=== PATIENT | female | born 1990 | race Two or more races ===

== ENCOUNTER 2021-07-19 18:08 | Emergency (ER) | payer SELFPAY ==
[~2021-07-19] VITALS: Ht 162.6 cm; Wt 77.7 kg
[2021-07-19 18:56] LABS: BASO # 0.1 x10^3/uL (0.0-0.2); BASO % 1 % (0-3); EOS % 0 % (0-3); HEMATOCRIT 42.3 % (36.0-47.0); HEMOGLOBIN 14.2 g/dL (12.0-15.5); LYMPH # 4.2 x10^3/uL (1.0-4.8); LYMPH % 22 % (24-48); MEAN CORPUSCULAR HEMOGLOBIN 31 pg (25-35); MEAN CORPUSCULAR HGB CONC 34 g/dL (31-37); MEAN CORPUSCULAR VOLUME 92 fL (79-100); MONO # 1.3 x10^3/uL (0.0-1.1); MONO % 7 % (0-9); NEUT # 14.1 x10^3/uL (1.8-7.7); NEUT % 71 % (31-73); PLATELET COUNT 294 x10^3/uL (140-400); RED BLOOD COUNT 4.58 x10^6/uL (3.50-5.40); WHITE BLOOD COUNT 19.8 x10^3/uL (4.0-11.0)
[2021-07-19 18:58] LABS: BILIRUBIN,URINE NEGATIVE (NEG); CLARITY,URINE CLEAR; COLOR,URINE YELLOW; NITRITE,URINE NEGATIVE (NEG); PROTEIN,URINE NEGATIVE (NEG-TRACE); UROBILINOGEN,URINE 0.2 mg/dL (0.2 mg/dL)
[2021-07-19 19:15] LABS: CALCIUM 8.9 mg/dL (8.5-10.1); CREATININE 0.8 mg/dL (0.6-1.0); GFR 83.1; POTASSIUM 3.5 mmol/L (3.5-5.1)
[2021-07-19 19:16] LABS: AMPHETAMINE/METHAMPHETAMINE NEG (NEG); BARBITURATES NEG (NEG); BENZODIAZEPINES NEG (NEG); CANNABINOIDS NEG (NEG); COCAINE NEG (NEG); METHADONE NEG (NEG); OPIATES NEG (NEG); PHENCYCLIDINE NEG (NEG)
[2021-07-19 19:17] LABS: BACTERIA,URINE FEW /HPF (0-FEW)
[2021-07-19 19:20] LABS: ALBUMIN 3.9 g/dL (3.4-5.0); ALBUMIN/GLOBULIN RATIO 0.8 (1.0-1.7); TOTAL BILIRUBIN 0.2 mg/dL (0.2-1.0); TOTAL PROTEIN 8.5 g/dL (6.4-8.2)
[2021-07-19 19:32] LABS: % BANDS 1 % (0-9); % LYMPHS 16 % (24-48); % MONOS 5 % (0-10); % SEGS 78 % (35-66); PLT ESTIMATE ADEQUATE (ADEQUATE)
[2021-07-19] MEDS ORDERED: CONTRAST GIVEN. MC PRN (21:15)
[2021-07-19] MEDS ORDERED: IOHEXOL 300 MG/ML 100ML VIAL. IV ONE (21:30)
--- NOTE | 2021-07-19 22:27 | RAD ---
EXAM: CT CHEST, ABDOMEN, AND PELVIS WITH CONTRAST INDICATION: Chest pain and abdominal pain COMPARISON: None TECHNIQUE: Helical CT imaging performed of the chest, abdomen and pelvis after administration of 75 m L Omnipaque 300 intravenous contrast. Sagittal and coronal reformats were obtained. One or more of the following individualized dose reduction techniques were utilized for this examinat ion: 1. Automated exposure control 2. Adjustment of the mA and/or kV according to patient size 3. Use of iterative reconstruction technique. FINDINGS: CHEST: Thyroid gland and thoracic inlet: Normal. Heart and great vessels: The heart is normal in size. No pericardial effusion. Thoracic aorta is norm al. No aneurysm or dissection. Great vessel origins are widely patent. Mediastinum and chela: No lymphadenopathy. There is mild diffuse esophageal wall thickening. Lungs and pleura: There is a 2 mm pulmonary nodule in the left lower lobe (image 20. Lungs are otherw ise clear. No pleural effusion or pneumothorax. Chest wall and axillae: No axillary lymphadenopathy. Bones: No acute osseous abnormality. ABDOMEN AND PELVIS: Liver: The liver is mildly enlarged measuring 21 cm in length. No focal liver lesion. Gallbladder/Biliary Tree: Normal. Pancreas: Normal. Spleen: Normal. Adrenal Glands: Normal. Kidneys/Ureters/Bladder: Small lobulated appearance of the right kidney consistent with mild atrophy scarring. There is a 4 mm calculus in the inferior right renal pole. No hydronephrosis. The left kidn ey is normal. Ureters and are normal. The bladder is decompressed. Reproductive Organs: Uterus and ovaries are normal in appearance. Stomach, small bowel, and colon: The stomach and small bowel are normal. The appendix is not clearly visualized. The colon is unremarkable. Vasculature: The abdominal aorta is normal. No calcified atherosclerosis. Lymph Nodes: No lymphadenopathy. Peritoneum and retroperitoneum: No free fluid or free air. Bones: No acute osseous abnormality. IMPRESSION: 1. No acute abnormality in the chest, abdomen or pelvis. 2. Mild right renal atrophy with multiple areas of scarring. Right nephrolithiasis. Electronically signed by: Mary Jane Rush MD (07/19/2021 10:24 PM) [id number]
--- NOTE | 2021-07-19 23:04 | PHYS DOC ---
Past Medical History Past Medical History: Anxiety, Depression Past Surgical History: No Surgical History Smoking Status: Never Smoker Alcohol Use: None General Adult EDM: Chief Complaint: Palpitations HPI: HPI: Patient is a 31 year old female with a history of anxiety, depression, currently on pregabalin, clonazepam and Cymbalta who presents to the ED today complaining of feeling her heart beating harder, symptoms began 4 days ago. Patient states she also has 5 out of 10 generalized neck pain that began today. Denies any injuries, denies anything exacerbating or relieving her neck pain. Denies any chest pain or shortness of breath. Denies any fever, coughing, nasal congestion. She states she gets all her medicines in [place]. Patient is Sami-speaking but also speaks some Citizen [place]. Examining Officer line was used for Sami Review of Systems: Review of Systems: Constitutional: Denies fever or chills. [] Eyes: Denies change in visual acuity. [] HENT: Denies nasal congestion or sore throat. [] Respiratory: Denies cough or shortness of breath. [] Cardiovascular: Reports feeling her heart beating hard. Denies chest pain or edema. [] GI: Denies abdominal pain, nausea, vomiting, bloody stools or diarrhea. [] : Denies dysuria. [] Musculoskeletal: Reports neck pain, denies back pain Integument: Denies rash. [] Neurologic: Denies headache, focal weakness or sensory changes. [] Psychiatric: Denies depression or anxiety. [] Heart Score: C/O Chest Pain: N/A Risk Factors: Risk Factors: DM, Current or recent (<one month) smoker, HTN, HLP, family history of CAD, obesity. Risk Scores: Score 0 - 3: 2.5% MACE over next 6 weeks - Discharge Home Score 4 - 6: 20.3% MACE over next 6 weeks - Admit for Clinical Observation Score 7 - 10: 72.7% MACE over next 6 weeks - Early Invasive Strategies Current Medications: Current Medications Medications (Trade) Dose Ordered Sig/Giuliano Start Time Stop Time Status Last Admin Dose Admin Info (CONTRAST GIVEN -- Rx MONITORING) 1 each PRN DAILY PRN 07/19/21 21:15 07/21/21 21:14 Iohexol (Omnipaque 300 Mg/ml) 75 ml 1X ONCE 07/19/21 21:30 07/19/21 21:31 DC 07/19/21 21:18 75 ML Allergies: Allergies: Allergies Coded Allergies Type Severity Reaction Last Updated Verified No Known Drug Allergies 07/19/21 No Physical Exam: PE: Constitutional: Well developed, well nourished, no acute distress, non-toxic appearance. [] HENT: Normocephalic, atraumatic, bilateral external ears normal, oropharynx moist, no oral exudates, nose normal. [] Eyes: PERRLA, EOMI, conjunctiva normal, no discharge. [] Neck: Normal range of motion, no tenderness, supple, no stridor. [] Cardiovascular:Heart rate regular rhythm, no murmur [] Lungs & Thorax: Bilateral breath sounds clear to auscultation [] Abdomen: Bowel sounds normal, soft, no tenderness, no masses, no pulsatile masses. [] Skin: Warm, dry, no erythema, no rash. [] Back: No tenderness, no CVA tenderness. [] Extremities: No tenderness, no cyanosis, no clubbing, ROM intact, no edema. [] Neurologic: Alert and oriented X 3, normal motor function, normal sensory function, no focal deficits noted. [] Psychologic: Affect normal, judgement normal, mood normal. [] Current Patient Data: Labs: Laboratory Tests Test 07/19/21 18:36 07/19/21 18:46 07/19/21 20:55 07/19/21 21:10 Urine Collection Type Unknown Urine Color Yellow Urine Clarity Clear Urine pH 6.0 (<5.0-8.0) Urine Specific [place] >=1.030 (1.000-1.030) Urine Protein Negative mg/dL (NEG-TRACE) Urine Glucose (UA) Negative mg/dL (NEG) Urine Ketones (Stick) Negative mg/dL (NEG) Urine Blood Trace (NEG) Urine Nitrite Negative (NEG) Urine Bilirubin Negative (NEG) Urine Urobilinogen Dipstick 0.2 mg/dL (0.2 mg/dL) Urine Leukocyte Esterase Negative (NEG) Urine RBC 1-2 /HPF (0-2) Urine WBC 1-4 /HPF (0-4) Urine Squamous Epithelial Cells Few /LPF Urine Bacteria Few /HPF (0-FEW) Urine Mucus Mod /LPF Urine Opiates Screen Neg (NEG) Urine Methadone Screen Neg (NEG) Urine Barbiturates Neg (NEG) Urine Phencyclidine Screen Neg (NEG) Urine Amphetamine/Methamphetamine Neg (NEG) Urine Benzodiazepines Screen Neg (NEG) Urine Cocaine Screen Neg (NEG) Urine Cannabinoids Screen Neg (NEG) Urine Ethyl Alcohol Neg (NEG) White Blood Count 19.8 x10^3/uL (4.0-11.0) H Red Blood Count 4.58 x10^6/uL (3.50-5.40) Hemoglobin 14.2 g/dL (12.0-15.5) Hematocrit 42.3 % (36.0-47.0) Mean Corpuscular Volume 92 fL (79-100) Mean Corpuscular Hemoglobin 31 pg (25-35) Mean Corpuscular Hemoglobin Concent 34 g/dL (31-37) Red Cell Distribution Width 13.0 % (11.5-14.5) Platelet Count 294 x10^3/uL (140-400) Neutrophils (%) (Auto) 71 % (31-73) Lymphocytes (%) (Auto) 22 % (24-48) L Monocytes (%) (Auto) 7 % (0-9) Eosinophils (%) (Auto) 0 % (0-3) Basophils (%) (Auto) 1 % (0-3) Neutrophils # (Auto) 14.1 x10^3/uL (1.8-7.7) H Lymphocytes # (Auto) 4.2 x10^3/uL (1.0-4.8) Monocytes # (Auto) 1.3 x10^3/uL (0.0-1.1) H Eosinophils # (Auto) 0.0 x10^3/uL (0.0-0.7) Basophils # (Auto) 0.1 x10^3/uL (0.0-0.2) Segmented Neutrophils % 78 % (35-66) H Band Neutrophils % 1 % (0-9) Lymphocytes % 16 % (24-48) L Monocytes % 5 % (0-10) Platelet Estimate Adequate (ADEQUATE) Sodium Level 144 mmol/L (136-145) Potassium Level 3.5 mmol/L (3.5-5.1) Chloride Level 104 mmol/L (98-107) Carbon Dioxide Level 28 mmol/L (21-32) Anion Gap 12 (6-14) Blood Urea Nitrogen 17 mg/dL (7-20) Creatinine 0.8 mg/dL (0.6-1.0) Estimated GFR (Cockcroft-Gault) 83.1 BUN/Creatinine Ratio 21 (6-20) H Glucose Level 83 mg/dL (70-99) Calcium Level 8.9 mg/dL (8.5-10.1) Magnesium Level 2.0 mg/dL (1.8-2.4) Total Bilirubin 0.2 mg/dL (0.2-1.0) Aspartate Amino Transferase (AST) 9 U/L (15-37) L Alanine Aminotransferase (ALT) 18 U/L (14-59) Alkaline Phosphatase 91 U/L (46-116) Troponin I High Sensitivity 6 ng/L (4-50) 5 ng/L (4-50) BZ-Cuy-H-Type Natriuretic Peptide 21 pg/mL (0-124) Total Protein 8.5 g/dL (6.4-8.2) H Albumin 3.9 g/dL (3.4-5.0) Albumin/Globulin Ratio 0.8 (1.0-1.7) L Thyroid Stimulating Hormone (TSH) 2.577 uIU/mL (0.358-3.74) POC Urine HCG, Qualitative Hcg negative (Negative) Laboratory Tests 07/19/21 18:46 Laboratory Tests 07/19/21 18:46 Vital Signs: Vital Signs Date Time Temp Pulse Resp B/P (MAP) Pulse Ox O2 Delivery O2 Flow Rate FiO2 07/19/21 18:10 97.7 77 16 118/59 (78) 100 Room Air 97.7 EKG: EK interpreted by Dr. Price sinus rhythm heart rate 74 no STEMI [] Radiology/Procedures: Radiology/Procedures: []PROCEDURE: CT CHEST ABD PELVIS W/CONTRAST EXAM: CT CHEST, ABDOMEN, AND PELVIS WITH CONTRAST INDICATION: Chest pain and abdominal pain COMPARISON: None TECHNIQUE: Helical CT imaging performed of the chest, abdomen and pelvis after administration of 75 mL Omnipaque 300 intravenous contrast. Sagittal and coronal reformats were obtained. One or more of the following individualized dose reduction techniques were utilized for this examination: 1. Automated exposure control 2. Adjustment of the mA and/or kV according to patient size 3. Use of iterative reconstruction technique. FINDINGS: CHEST: Thyroid gland and thoracic inlet: Normal. Heart and great vessels: The heart is normal in size. No pericardial effusion. Thoracic aorta is normal. No aneurysm or dissection. Great vessel origins are widely patent. Mediastinum and chela: No lymphadenopathy. There is mild diffuse esophageal wall thickening. Lungs and pleura: There is a 2 mm pulmonary nodule in the left lower lobe (image 20. Lungs are otherwise clear. No pleural effusion or pneumothorax. Chest wall and axillae: No axillary lymphadenopathy. Bones: No acute osseous abnormality. ABDOMEN AND PELVIS: Liver: The liver is mildly enlarged measuring 21 cm in length. No focal liver lesion. Gallbladder/Biliary Tree: Normal. Pancreas: Normal. Spleen: Normal. Adrenal Glands: Normal. Kidneys/Ureters/Bladder: Small lobulated appearance of the right kidney consistent with mild atrophy scarring. There is a 4 mm calculus in the inferior right renal pole. No hydronephrosis. The left kidney is normal. Ureters and are normal. The bladder is decompressed. Reproductive Organs: Uterus and ovaries are normal in appearance. Stomach, small bowel, and colon: The stomach and small bowel are normal. The appendix is not clearly visualized. The colon is unremarkable. Vasculature: The abdominal aorta is normal. No calcified atherosclerosis. Lymph Nodes: No lymphadenopathy. Peritoneum and retroperitoneum: No free fluid or free air. Bones: No acute osseous abnormality. IMPRESSION: 1. No acute abnormality in the chest, abdomen or pelvis. 2. Mild right renal atrophy with multiple areas of scarring. Right neph rolithiasis. Electronically signed by: Mary Jane Rush MD (07/19/2021 10:24 PM) [id number] DICTATED and SIGNED BY: MARY JANE RUSH MD DATE: 07/19/21 [id number] 0 Course & Med Decision Making: Course & Med Decision Making Pertinent Labs and Imaging studies reviewed. (See chart for details) This is a 31-year-old female patient with history of anxiety, depression, presenting today complaining of feeling her heart beating hard, symptoms for 4 days, also complaining of neck pain that began today. Vitals on arrival to the ED temperature 97.7, heart rate 77, respiration 16 on room air, blood pressure 118/59, O2 sats 100%. CBC with a WBC of 19.8 and a left shift, CMP with no acute findings, UA is negative, CTA chest abdomen and pelvis is negative for any acute findings. 2300-I went to give patient results and reevaluate her, she is happy with the boyfriend, they are laughing and caring along She was discharged to home. Encourage her to follow-up with [facility] Tere Disclaimer: Tere Disclaimer: This electronic medical record was generated, in whole or in part, using a voice recognition dictation system. Departure Departure Impression: Primary Impression: Palpitations Additional Impression: Anxiety Disposition: HOME / SELF CARE / HOMELESS Condition: STABLE Referrals: NO PCP (PCP) Follow-up with [facility] Patient Instructions: Anxiety and Panic Attacks, Palpitations Additional Instructions: You were evaluated in the emergency room for palpitations. Please follow-up with [facility] as soon as you can. BRANDON HINDS APRN Jul 19, 2021 23:04
--- NOTE | 2021-07-20 00:27 | RAD ---
EXAM: XR CHEST 1V 07/19/2021 9:18 PM CLINICAL INDICATION: Palpitations COMPARISON: None TECHNIQUE: AP upright view of the chest FINDINGS: The heart and mediastinum are normal. Lungs are mildly hypoexpanded. No consolidation, pl eural effusion, or pneumothorax. Pulmonary vascularity is normal. The thoracic skeleton is intact. IMPRESSION: No acute cardiopulmonary abnormality. Electronically signed by: Mary Jane Rush MD (07/20/2021 12:24 AM) [id number]
--- NOTE | 2021-07-20 03:48 | EKG ---
[facility] [address] [place] [address] Test Date: 2021-07-19 Test Time: 18:17:11 Pat Name: PANFILO LOPEZ Department: Room: Gender: F Therapy Coordinator: : 1990 Requested By: BRANDON HINDS Order Number: [id number] Reading MD: Cesario Peters Measurements Intervals [place] Rate: 74 P: 11 MA: 166 QRS: 42 QRSD: 78 T: 33 QT: 338 QTc: 380 Interpretive Statements SINUS RHYTHM Electronically Signed On 07-20-2021 19:59:49 SKIP PITMAN by Cesario Peters
[2021-07-20 06:40] VITALS: BP 136/70
== END 2021-07-19 23:39 | disposition home or self-care (01) ==
LOC: ER 18:08
DX: R00.2 Palpitations (principal); F41.9 Anxiety disorder, unspecified; M54.2 Cervicalgia; F32.9 Major depressive disorder, single episode, unspecified
CPT/HCPCS: 36415; 71045; 71260; 74177; 80053; 80307; 81001; 81025; 83735; 83880; 84443; 84484; 85007; 85025; 93005; 99285; Q9967